=== PATIENT | female | born 2000 | race Caucasian/White ===

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

== ENCOUNTER 2024-11-21 19:59 | Emergency (ER) | payer MEDICAID ==
[~2024-11-21] VITALS: Ht 160 cm; Wt 56.0 kg
[~2024-11-21 19:59] MED LIST changes: +ONDA-243 PO; -ONDA4TAB12 PO; +PROM12.512 PO
[2024-11-21 20:18] VITALS: BP 125/76; PULSE 99; RESP 15; TEMP 96.3; O2SAT 98
== END 2024-11-21 21:21 | disposition left against medical advice (07) ==
LOC: ER 20:00
DX: R11.10 Vomiting, unspecified (principal); E86.0 Dehydration; Z53.21 Procedure and treatment not carried out due to patient leaving prior to being seen by health care provider